=== PATIENT | female | born 1975 | race Caucasian/White ===

== ENCOUNTER 2017-01-30 19:24 | Emergency (ER) | payer OTHER ==
[2017-01-30 19:35] VITALS: TEMP 97.8
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
--- NOTE | 2017-01-30 21:18 | XR ---
EXAMINATION TYPE: XR shoulder complete RT DATE OF EXAM: 01/30/2017 COMPARISON: NONE HISTORY: Pain after falling TECHNIQUE: 3 views FINDINGS: Bones and joints and soft tissues are unremarkable. IMPRESSION: Negative examination.
[2017-01-30] MEDS ORDERED: CEPHALEXIN 500MG STARTER PACK 4 CAP BTL PO STA (22:05)
[2017-01-30] MEDS ORDERED: CIPROFLOXACIN 0.3% OPHTH SOLN 2.5 ML BTL BOTH EYES STA (22:05)
[2017-01-30] MEDS ORDERED: DIPH,PERTUS(ACELL)TETVAC-LF 0.5 ML VIAL IM ONE (22:06)
[2017-01-30] MEDS ORDERED: ACET/COD 300 MG/30 MG STARTER PACK 6 TAB BTL PO STA (22:06)
[2017-01-30] MEDS ORDERED: MUPIROCIN 2% OINT 22 GM TUBE TOPICAL SCH (22:15)
[2017-01-30 22:50] VITALS: BP 99/54; PULSE 70; RESP 20
[2017-01-30] MEDS ORDERED: MUPIROCIN 2% OINT 22 GM TUBE TOPICAL STA (22:50)
== END 2017-01-30 23:21 | disposition home or self-care (01) ==
LOC: EC 19:24
DX: S00.83XA Contusion of other part of head, initial encounter (principal); S00.211A Abrasion of right eyelid and periocular area, initial encounter; S40.812A Abrasion of left upper arm, initial encounter; S40.811A Abrasion of right upper arm, initial encounter; S80.812A Abrasion, left lower leg, initial encounter; S80.811A Abrasion, right lower leg, initial encounter; M25.511 Pain in right shoulder; V27.0XXA Motorcycle driver injured in collision with fixed or stationary object in nontraffic accident, initial encounter; Z23 Encounter for immunization
CPT/HCPCS: 70450; 70486; 72125; 90471; 90715; 99284

== ENCOUNTER → 2020-12-04 | Outpatient (CLI) | payer OTHER ==
--- NOTE | 2020-12-06 14:07 | MM ---
Reason for exam: screening (asymptomatic). Last mammogram was performed 9 years and 4 months ago. Physical Findings: A clinical breast exam by your physician is recommended on an annual basis and results should be correlated with mammographic findings. MG Screening Mammo w CAD Bilateral CC and MLO view(s) were taken. Prior study comparison: August 07, 2011, [facility] DIGITAL LEFT BREAST MAMMOGRAM w/CAD. July 17, 2011, bilateral digital screening mammo w/CAD. The breast tissue is heterogeneously dense. This may lower the sensitivity of mammography. 1.4cm circumscribed isodense mass left upper outer quadrant may represent a cyst. ASSESSMENT: Incomplete: need additional imaging evaluation, BI-RAD 0 RECOMMENDATION: Ultrasound of both breasts. [facility] will attempt to contact patient to return for ultrasound.
== END | disposition home or self-care (01) ==
LOC: RADMAMWWP 16:40
PROVIDERS: ATTEND Internal Medicine
DX: Z12.31 Encounter for screening mammogram for malignant neoplasm of breast (principal)
CPT/HCPCS: 77067

== ENCOUNTER → 2020-12-24 | Outpatient (CLI) | payer BC, OTHER ==
--- NOTE | 2020-12-24 09:39 | USB ---
Reason for exam: additional evaluation requested from abnormal screening. Physical Findings: Nurse Summary: Patient complains of intermittent upper outer quadrant shooting left breast pains with palpable lumps (nurse mj). US Breast Workup Limited LT Left limited breast ultrasound including focal area of concern, retroareolar and axilla demonstrates a 1.4 x 0.8 x 1.3cm hypoechoic lesion at 2 o'clock, circumscribed with posterior thru transmission, mammographic correlate. Scanned 12-3 o'clock. These results were verbally communicated with the patient and result sheet given to the patient on 12/24/20. ASSESSMENT: Suspicious, BI-RAD 4 RECOMMENDATION: Ultrasound core biopsy of the left breast. Called Dr. Carcamo's office with mammographic findings and has scheduled an appointment for the patient for 01/04/21 at 9:[address] Mehta. Biopsy scheduled for 01/18/21 at 10:30. PRELIMINARY REPORT CALLED AND FAXED TO DR. MEHTA ON 12/24/20.
== END | disposition home or self-care (01) ==
LOC: RADUSWWP 08:12
PROVIDERS: ATTEND Internal Medicine
DX: N64.59 Other signs and symptoms in breast (principal)

== ENCOUNTER → 2021-01-04 | Outpatient (CLI) | payer BC, OTHER ==
[2021-01-04 09:04] VITALS: BP 125/84; PULSE 85; RESP 16; TEMP 98.4
--- NOTE | 2021-01-04 09:39 | P.GSHP ---
History of Present Illness H&P Date: 01/04/21 Chief Complaint: Abnormal left breast mammogram and ultrasound Reina is a 45-year-old white female who presents for radiographic evaluation for Dr. Carcamo. She underwent a bilateral mammogram on which reveals a 1.4 cm circumscribed mass in the left breast upper outer quadrant. An ultrasound was recommended. The ultrasound was performed and 6721. This revealed a 1.4 x 1.3 cm hypoechoic lesion at 2:00. The recommendation was for ultrasound-guided core biopsy. The patient states that she does not feel any discrete mass in this area at this time. She is not complaining of any other lumps masses or nodules in the breast. She is not complaining of any nipple discharge. She states that time she has noted some roughness of the skin around the left nipple. She has not noticed anything like this at the right nipple. She is not complaining of any trauma or infection in the past. She has never had any surgery on her breast. Maternal grandmother was noted to have an extra nummary breast. She had this surgically removed. Caffeine: 1 can of pop/day nicotine: none chocolate: daily Family History: none Hormonal History: menarche: 12 , breast fed: no, age at first : 19 periods: Hysterectomy 2013, they did not remove her ovaries control pills: 6 years intermittent hormones: none Surgical History: hysterectomy eye surgery lazy eye right Medical History: jaw pain Social History: nicotine: none alcohol: rare drugs: none - Constitutional Comment: hot flashes Constitutional: Reports sweats - EENT Eyes: bilateral as per HPI Ears: deny: decreased hearing, tinnitus Ears, nose, mouth and throat: Reports headache, Denies sore throat - Breasts Breasts: bilateral: as per HPI - Cardiovascular Cardiovascular: Denies chest pain, Denies shortness of breath - Respiratory Respiratory: Denies cough, Denies 7 - Gastrointestinal Gastrointestinal: Denies abdominal pain, Denies diarrhea, Denies nausea, Denies vomiting - Genitourinary (Female) Genitourinary: Denies dysuria, Denies hematuria - Menstruation Menstruation: Reports post hysterectomy - Musculoskeletal Musculoskeletal: Denies myalgias - Integumentary Integumentary: Denies pruritus, Denies rash - Neurological Neurological: Denies numbness, Denies weakness - Psychiatric Psychiatric: Reports anxiety, Denies depression - Endocrine Endocrine: Reports weight change, Denies fatigue - Hematologic/Lymphatic Comment: none - Allergic/Immunologic Allergic/Immunologic: Reports seasonal allergies Past Medical History Past Medical History: No Reported History History of Any Multi-Drug Resistant Organisms: None Reported Past Surgical History: Hysterectomy Past Psychological History: No Psychological Hx Reported Smoking Status: Never smoker Past Alcohol Use History: None Reported Past Drug Use History: Marijuana Medications and Allergies Home Medications Medication Instructions Recorded Confirmed Type Ibuprofen [Motrin] 1,200 mg PO Q8HR PRN 01/30/17 01/04/21 History Naproxen 250 mg PO QID PRN 01/04/21 01/04/21 History Allergies Allergy/AdvReac Type Severity Reaction Status Date / Time No Known Allergies Allergy Verified 01/04/21 09:00 Surgical - Exam Vital Signs Temp Pulse Resp BP Pulse Ox 98.4 F 85 16 125/84 100 01/04/21 09:00 01/04/21 09:00 01/04/21 09:00 01/04/21 09:00 01/04/21 09:00 BMI 23.8 - General well developed, well nourished, no distress - Eyes normal ocular movement - ENT no hearing loss - Neck no masses, trachea midline - Respiratory normal respiratory effort, clear to auscultation - Cardiovascular Rhythm: regular Heart Sounds: normal: S1, S2 - Abdomen Abdomen: soft, non tender, no guarding, no rigid, no rebound - Integumentary normal turgor - Neurologic no disoriented, no combative - Musculoskeletal normal gait, normal posture - Psychiatric oriented to time, oriented to person, oriented to place, speech is normal, memory intact Breast exam: BRA: 36C inspection: Bilateral grade 2 ptosis, there is some increased pigmentation of the left axilla related to the fact that the patient had used Murphy at that site Palpation: Right breast: Multiple positional exam tissue very dense no dominant masses or nodules of concern, fibrocystic changes Right axilla: No adenopathy of concern Left breast: Multiple positional exam fibrocystic changes, no dominant masses or nodules of concern, tissue very dense Left axilla: Increased pigmentation in the axilla related to recent murphy application, no adenopathy of concern Results Bilateral mammogram and ultrasound reviewed and discussed personally with radiology Assessment and Plan Assessment: Impression: 1. Left breast mammographic and ultrasound abnormality 2. Dense breast 3. Fibrocystic breast changes 4. Jaw pain at this time she is seen a dentist Plan: 1. Ultrasound-guided core biopsy left breast 2. Follow-up after ultrasound-guided core biopsy Risk and benefits of procedure discussed with the patient she understands and wishes to proceed. Cc: Dr. Carcamo
== END ==
LOC: WWCWWP 08:48
PROVIDERS: ATTEND Surgery
DX: R92.2 Inconclusive mammogram (principal); N60.12 Diffuse cystic mastopathy of left breast; N60.11 Diffuse cystic mastopathy of right breast; R68.84 Jaw pain

== ENCOUNTER → 2021-01-18 | Day surgery (SDC) | payer BC, OTHER ==
[2021-01-18 09:43] VITALS: RESP 16; TEMP 98.1
[2021-01-18 12:15] VITALS: BP 105/71; PULSE 74
== END ==
LOC: RADUSWWP 09:20
PROVIDERS: ATTEND Surgery
DX: D24.2 Benign neoplasm of left breast (principal)
CPT/HCPCS: 88305; 77065; 19083; A4648; J2001

== ENCOUNTER → 2021-01-25 | Outpatient (CLI) | payer OTHER ==
[2021-01-25 08:54] VITALS: BP 125/81; PULSE 88; RESP 18; TEMP 98.1
--- NOTE | 2021-01-25 09:04 | P.PN ---
Subjective Progress Note Date: 01/25/21 Principal diagnosis: Fibroadenoma left breast Reina is a 45-year-old white female who was seen initially on . She had undergone a bilateral mammogram which had revealed a 1.4 cm mass in the left breast upper outer quadrant. An ultrasound confirmed this. She was recommended to undergo breast ultrasound-guided core biopsy. This was performed on 7220 and pathology was consistent with a fibroadenoma. The patient herself did not feel anything of concern and I did not feel anything of concern on the physical exam at that time. The patient tolerated the procedure with no difficulty. She has no complaints related to the procedure. Objective - Vital Signs Vital signs: Vital Signs Temp 98.1 F 01/25/21 08:52 Pulse 88 01/25/21 08:52 Resp 18 01/25/21 08:52 BP 125/81 01/25/21 08:52 Pulse Ox 100 01/25/21 08:52 Intake & Output 01/24/21 01/25/21 01/25/21 18:59 06:59 18:59 Weight 68.039 kg - Constitutional General appearance: Present: average body habitus - EENT Eyes: Present: EOMI ENT: Present: hearing grossly normal - Neck Neck: Present: normal ROM - Respiratory Respiratory: bilateral: CTA - Cardiovascular Heart sounds: normal: S1, S2 - Integumentary Integumentary Comment(s): Mild ecchymosis left breast biopsy site, no evidence of infection or hematoma - Musculoskeletal Musculoskeletal: Present: gait normal - Psychiatric Psychiatric: Present: A&O x's 3 Assessment and Plan Assessment: Impression: 1. Patient status post ultrasound core biopsy radiographic lesion left breast consistent with fibroadenoma Plan: 1. Repeat left breast ultrasound in 6 months with physician exam at that time We have discussed that if the lesion becomes symptomatic or the lesion starts to grow then we may consider resection but at this time there is no necessity for resection. She understands and wishes to be followed conservatively. CC: Dr. Carcamo, Dr. Cooney
== END ==
LOC: WWCWWP 08:46
PROVIDERS: ATTEND Surgery
DX: D24.2 Benign neoplasm of left breast (principal)

== ENCOUNTER → 2021-07-22 | Outpatient (CLI) | payer BC, OTHER ==
--- NOTE | 2021-07-22 10:33 | USB ---
Reason for exam: clinical finding. History: Family history of breast cancer in maternal grandmother. Benign US biopsy breast VAD LT of the left breast, January 18, 2021. Physical Findings: Nurse did not find any significant physical abnormalities on exam. US Breast Limited LT Left limited breast ultrasound including focal area of concern, retroareolar and axilla demonstrates a 1.1 x 0.9 x 0.8cm solid, hypoechoic lesion with clip at 2 o'clock, stable fibroadenoma. These results were verbally communicated with the patient and result sheet given to the patient on 07/22/21. ASSESSMENT: Benign, BI-RAD 2 RECOMMENDATION: Return to routine screening mammogram schedule for both breasts. Back on schedule for November 2021.
== END | disposition home or self-care (01) ==
LOC: RADUSWWP 09:25
PROVIDERS: ATTEND Surgery
DX: N64.59 Other signs and symptoms in breast (principal); Z80.3 Family history of malignant neoplasm of breast

== ENCOUNTER → 2021-07-25 | Outpatient (CLI) | payer BC, OTHER ==
[2021-07-25 15:15] VITALS: BP 126/81; PULSE 97; RESP 18; TEMP 98.1
--- NOTE | 2021-07-25 15:21 | P.PN ---
Subjective Progress Note Date: 07/25/21 Principal diagnosis: fibroadenoma left breast Reina is a 46-year-old white female who presents for radiographic evaluation for Dr. Carcamo. She underwent a bilateral mammogram on which revealed a 1.4 cm circumscribed mass in the left breast upper outer quadrant. An ultrasound was recommended. The ultrasound was performed and 6720. This revealed a 1.4 x 1.3 cm hypoechoic lesion at 2:00. The recommendation was for ultrasound- guided core biopsy. This was done on revealed a fibroadenoma. Does not complain of any new masses or nodules in either breast. Repeat ultrasound performed 1321. This revealed stable biopsy-proven fibroadenoma at the 2 o'clock position of the left breast. Patient however would like the fibroadenoma removed as she states that it seems to generate pain from that site with certain movements. Maternal grandmother was noted to have an extra nummary breast. She had this surgically removed. Caffeine: 1 can of pop/day nicotine: none chocolate: daily Family History: none Hormonal History: menarche: 12 , breast fed: no, age at first : 19 periods: Hysterectomy 2013, they did not remove her ovaries control pills: 6 years intermittent hormones: none Surgical History: hysterectomy eye surgery lazy eye right Medical History: jaw pain Social History: nicotine: none alcohol: rare drugs: none - Constitutional Comment: hot flashes Constitutional: Reports sweats - EENT Eyes: bilateral as per HPI Ears: deny: decreased hearing, tinnitus Ears, nose, mouth and throat: Reports headache, Denies sore throat - Breasts Breasts: bilateral: as per HPI - Cardiovascular Cardiovascular: Denies chest pain, Denies shortness of breath - Respiratory Respiratory: Denies cough, Denies 7 - Gastrointestinal Gastrointestinal: Denies abdominal pain, Denies diarrhea, Denies nausea, Denies vomiting - Genitourinary (Female) Genitourinary: Denies dysuria, Denies hematuria - Menstruation Menstruation: Reports post hysterectomy - Musculoskeletal Musculoskeletal: Denies myalgias - Integumentary Integumentary: Denies pruritus, Denies rash - Neurological Neurological: Denies numbness, Denies weakness - Psychiatric Psychiatric: Reports anxiety, Denies depression - Endocrine Endocrine: Reports weight change, Denies fatigue - Hematologic/Lymphatic Comment: none - Allergic/Immunologic Allergic/Immunologic: Reports seasonal allergies Objective - Exam BMI 24.3 - Constitutional General appearance: Present: cooperative - EENT Eyes: Present: EOMI ENT: Present: hearing grossly normal - Neck Neck: Present: normal ROM - Respiratory Respiratory: bilateral: CTA - Cardiovascular Heart sounds: normal: S1, S2 - Integumentary Integumentary: Present: normal turgor - Musculoskeletal Musculoskeletal: Present: gait normal - Psychiatric Psychiatric: Present: A&O x's 3, appropriate affect, intact judgment & insight - Additional findings Additional findings: Breast Exam: BRA: sports Bra medium Fashion: Bilateral grade 2 ptosis Palpation: Right breast: Multiple positional exam fibrocystic changes no dominant masses or nodules of concern Right axilla: No adenopathy of concern Left breast: Multi-positional exam fibrocystic changes no dominant masses or nodules of concern Left axilla: No adenopathy of concern Assessment and Plan Assessment: Impression: 1. Fibrocystic breast changes 2. Symptomatic fibroadenoma left breast Plan: 1. Repeat bilateral mammogram and left breast ultrasound in 6 months with physician exam at that time CC: Dr. Carcamo
== END ==
LOC: WWCWWP 14:24
PROVIDERS: ATTEND Surgery
DX: N60.12 Diffuse cystic mastopathy of left breast (principal); D24.2 Benign neoplasm of left breast

== ENCOUNTER → 2021-09-06 | Outpatient (CLI) | payer OTHER ==
[2021-09-06 13:02] VITALS: BP 131/86; PULSE 82; RESP 17; TEMP 98.1
--- NOTE | 2021-09-06 13:13 | P.PN ---
Subjective Progress Note Date: 09/06/21 Principal diagnosis: symptomatic painful fibroadenoma left breast fibroadenoma left breast Reina is a 46-year-old white female who presented for breast evaluation for Dr. Carcamo. She underwent a bilateral mammogram on which revealed a 1.4 cm circumscribed mass in the left breast upper outer quadrant. An ultrasound was recommended. The ultrasound was performed and 6720. This revealed a 1.4 x 1.3 cm hypoechoic lesion at 2:00. The recommendation was for ultrasound-guided core biopsy. This was done on revealed a fibroadenoma. Does not complain of any new masses or nodules in either breast. Repeat ultrasound performed 1321. This revealed stable biopsy-proven fibroadenoma at the 2 o'clock position of the left breast. Patient however would like the fibroadenoma removed as she states that it seems to generate pain from that site with certain movements. The patient has been experiencing perimenopausal symptoms such as hot flashes. She was recently given a prescription for estradiol was concerned about taking a prior to removal of the fibroadenoma. Maternal grandmother was noted to have an extra nummary breast. She had this surgically removed. Caffeine: 1 can of pop/day nicotine: none chocolate: daily Family History: none Hormonal History: menarche: 12 , breast fed: no, age at first : 19 periods: Hysterectomy 2013, they did not remove her ovaries control pills: 6 years intermittent hormones: none Surgical History: hysterectomy eye surgery lazy eye right Medical History: jaw pain Social History: nicotine: none alcohol: rare drugs: none - Constitutional Comment: hot flashes Constitutional: Reports sweats - EENT Eyes: bilateral as per HPI Ears: deny: decreased hearing, tinnitus Ears, nose, mouth and throat: Reports headache, Denies sore throat - Breasts Breasts: bilateral: as per HPI - Cardiovascular Cardiovascular: Denies chest pain, Denies shortness of breath - Respiratory Respiratory: Denies cough - Gastrointestinal Gastrointestinal: Denies abdominal pain, Denies diarrhea, Denies nausea, Denies vomiting - Genitourinary (Female) Genitourinary: Denies dysuria, Denies hematuria - Menstruation Menstruation: Reports post hysterectomy - Musculoskeletal Musculoskeletal: Denies myalgias - Integumentary Integumentary: Denies pruritus, Denies rash - Neurological Neurological: Denies numbness, Denies weakness - Psychiatric Psychiatric: Reports anxiety, Denies depression - Endocrine Endocrine: Reports weight change, Denies fatigue - Hematologic/Lymphatic Comment: none - Allergic/Immunologic Allergic/Immunologic: Reports seasonal allergies Objective - Vital Signs Vital signs: Vital Signs Temp 98.1 F 09/06/21 12:57 Pulse 82 09/06/21 12:57 Resp 17 09/06/21 12:57 BP 131/86 09/06/21 12:57 Pulse Ox 100 09/06/21 12:57 Intake & Output 09/05/21 09/06/21 09/06/21 18:59 06:59 18:59 Weight 70.307 kg - Exam BMI 24.3 - Constitutional General appearance: Present: cooperative - EENT ENT: Present: hearing grossly normal - Neck Neck: Present: normal ROM - Respiratory Respiratory: bilateral: CTA - Cardiovascular Rhythm: regular Heart sounds: normal: S1, S2 - Gastrointestinal General gastrointestinal: Present: soft - Integumentary Integumentary: Present: normal turgor - Musculoskeletal Musculoskeletal: Present: gait normal - Psychiatric Psychiatric: Present: A&O x's 3, appropriate affect, intact judgment & insight - Additional findings Additional findings: Breast Exam: BRA: medium inspection: bilateral grade 2 ptosis palpation: right breast: Multi-positional exam fibrocystic changes no dominant masses or nodules of concern Right axilla: No adenopathy of concern Left breast: Dense breast tissue, tenderness to the upper outer quadrant area in the vicinity of the fibroadenoma although a discrete mass was not appreciated no other nodules of concern Left axilla: No adenopathy of concern Assessment and Plan Assessment: Impression: Fibrocystic breast changes Symptomatic fibroadenoma left breast Plan: Needle localization excision of symptomatic fibroadenoma left breast Risk and benefits of the procedure were discussed with the patient. She understands that this does not have to be removed at this as it is not a premalignant condition. However it is very symptomatic for the patient and she wishes it to be removed. I also discussed that this may not alleviate all of the pain. Risks include but are not limited to bleeding, infection, reaction to the anesthetic. The possibility that needle localization and the needle with move and the lesion not be removed was also discussed. Patient understands and wishes to proceed. CC: Dr. Carcamo
== END ==
LOC: WWCWWP 12:33
PROVIDERS: ATTEND Surgery
DX: D24.2 Benign neoplasm of left breast (principal); N60.11 Diffuse cystic mastopathy of right breast

== ENCOUNTER 2021-09-10 07:10 | Day surgery (SDC) | payer BC, OTHER ==
[2021-09-06 14:55] VITALS: BMI 24.3
[~2021-09-10 07:10] MED LIST: DEXAMETHASONE SOD PHOSPHATE 4 MG/ML 1 ML VIAL IV ONE; HEPARIN SODIUM,PORCINE/PF 5,000 UNIT/0.5 ML SYRINGE SQ PRN; HYDROmorphone 0.5 MG/0.5 ML SYRINGE IVP PRN; LACTATED RINGERS 1,000 ML IV SCH; LIDOCAINE 1% (10MG/ML) FOR IV START INTRADERMA PRN; MIDAZOLAM 2 MG/2 ML VIAL IV PRN; ONDANSETRON 4 MG/2 ML VIAL IVP ONE; Pre Op ABX Message 1 EACH MISC MISCELLANE ONE
[2021-09-10] MEDS ORDERED: ALPRAZolam 0.5 MG TAB ONE (07:54)
[2021-09-10] MEDS ORDERED: LIDOCAINE 1% INJ 10MG/ML (20 ML MDV) SQ ONE ×3 (09:11→10:52)
[2021-09-10] MEDS ORDERED: PROPOFOL 10 MG/ML 20 ML VIAL IV ONE (10:26)
[2021-09-10] MEDS ORDERED: LIDOCAINE 1% INJ 10MG/ML (20 ML MDV) ONE (10:26)
[2021-09-10] MEDS ORDERED: MIDAZOLAM 2 MG/2 ML VIAL ONE (10:26)
[2021-09-10] MEDS ORDERED: fentaNYL (PF) 50 MCG/ML 2 ML AMP ONE (10:26)
[2021-09-10] MEDS ORDERED: PHENYLEPHRINE-0.9% NACL SYG 1,000 MCG/10 ML SYRINGE ONE (10:26)
--- NOTE | 2021-09-10 11:30 | P.OP ---
Date of Procedure: 09/10/21 Preoperative Diagnosis: Left breast symptomatic fibroadenoma Postoperative Diagnosis: Same Procedure(s) Performed: Needle localization excisional lumpectomy left breast Anesthesia: MICHAELA Surgeon: Luba Mehta Estimated Blood Loss (ml): 5 IV fluids (ml): 400 Pathology: other (breast tissue) Condition: stable Disposition: same day Indications for Procedure: Symptomatic fibroadenoma Operative Findings: Dense breast tissue Description of Procedure: The patient was taken to the operating room following needle localization of the symptomatic fibroadenoma in the left breast. Following induction of anesthesia the left breast was prepped and draped in a sterile fashion. An incision was made and carried down to the hook of the needle. Surrounding tissue was excised. The tissue excised was 9 x 4 cm for 32 cm. The specimen was painted for orientation. Radiograph revealed the area of concern had been removed. The wound was evaluated for hemostasis. Titanium clips were placed. After we were assured that this was attained the superior pillar of tissue was formed. This appeared was 4 x 3 cm of tissue mobilization. Total tissue mobilized was 44 cm. The tissues were brought together using 3-0 Vicryl suture. The subcutaneous tissues closed using 3-0 Vicryl suture. The skin was closed using 4-0 Monocryl and Steri-Strips.
--- NOTE | 2021-09-10 11:32 | P.DS ---
Providers Attending physician: Luba Mehta Primary care physician: Dona Domínguez Plan - Discharge Summary Discharge Rx Participant: No New Discharge Prescriptions: No Action Phentermine HCl [Adipex P] 37.5 mg PO AC-BRKFST Estradiol 0.5 mg PO DAILY Discharge Medication List Phentermine HCl [Adipex P] 37.5 mg PO AC-BRKFST 01/25/21 [History] Estradiol 0.5 mg PO DAILY 09/06/21 [History] Follow up Appointment(s)/Referral(s): Luba Mehta MD [STAFF PHYSICIAN] - 1 Week Activity/Diet/Wound Care/Special Instructions: may shower after 48 hours wear bra at all times Discharge Disposition: HOME SELF-CARE
[2021-09-10 11:46] VITALS: TEMP 97.4
[2021-09-10 12:02] VITALS: RESP 16
[2021-09-10 13:15] VITALS: PULSE 66
[2021-09-10 13:30] VITALS: BP 116/76
--- NOTE | 2021-09-10 18:34 | MM ---
EXAMINATION TYPE: MG pre op needle loc LT, MG surgical specimen LT DATE OF EXAM: 09/10/2021 COMPARISON: 12/04/2020 CLINICAL HISTORY: 46-year-old female R92.8, abnormal mammogram, referred for excision of symptomatic fibroadenoma left breast. TECHNIQUE: Needle localization with wire placement and surgical excision of area of concern in the le ft breast. FINDINGS: The procedure of needle localization with wire placement and than surgical excision was exp lained to the patient. Benefits, alternatives, and risks were discussed. An informed consent was th en obtained. The shortest pathway for procedure was chosen. Shortest pathway was a lateral approach. The overlyin g skin was prepped and draped in usual sterile fashion. Lidocaine was used as anesthetic into the ski n and subcutaneous tissue up to the level of area of concern. A 5 cm needle was used. It was placed via a lateral approach under mammographic guidance. Subsequent 90 degrees mammogram show the needle to be in satisfactory position relative to the targeted area. At this point, wire was placed and th e needle was withdrawn. The wire was fixed to patient's skin. Images were marked for surgeon. The patient tolerated the procedure well without any immediate complication. The patient was kept in the radiology department for short stay after the procedure and then taken to surgery for surgical e xcision. Mass (biopsy-proven fibroadenoma), clip, and wire are identified in specimen mammogram. The patient was kept in hospital for short stay after the procedure and then discharged home in stable condition. IMPRESSION: Successful, uncomplicated needle localization with wire placement and surgical excision of symptomati c, biopsy-proven left breast fibroadenoma; full pathology results to follow.
== END 2021-09-10 14:00 | disposition home or self-care (01) ==
LOC: OR 07:10
PROVIDERS: ATTEND Surgery
DX: D24.2 Benign neoplasm of left breast (principal); N60.12 Diffuse cystic mastopathy of left breast; Z90.710 Acquired absence of both cervix and uterus; Z98.890 Other specified postprocedural states; Z79.890 Hormone replacement therapy; Z79.899 Other long term (current) drug therapy
CPT/HCPCS: 19301; 88307; 76098; 19281; J2250; J1100; J2405; J2001; J3010; J2370; J2704; J1644

== ENCOUNTER → 2021-09-19 | Outpatient (CLI) | payer OTHER ==
[2021-09-19 14:54] VITALS: BP 116/77; PULSE 90; RESP 18; TEMP 97.8
--- NOTE | 2021-09-19 14:58 | P.PN ---
Progress Note - Text Progress Note Date: 09/19/21 Reina is a 46-year-old white female status post excision of a fibroadenoma and [id number]. She tolerated the procedure without difficulty. His echo examination: Lungs: Clear Heart: Regular rate and rhythm Incision: Clean and dry Impression: Patient status post excision of symptomatic fibroadenoma left breast Plan: Left breast mammogram in 6 months with physician exam at that time CC: Dr. Carcamo
== END ==
LOC: WWCWWP 14:44
PROVIDERS: ATTEND Surgery
DX: Z09 Encounter for follow-up examination after completed treatment for conditions other than malignant neoplasm (principal); Z86.018 Personal history of other benign neoplasm; Z98.890 Other specified postprocedural states